=== PATIENT | female | born 1995 | race Two or more races ===

== ENCOUNTER → 2016-10-20 | Outpatient (CLI) | payer SELFPAY ==
--- NOTE | 2016-10-20 16:37 | RADIOLOGY REPORT (SQ) ---
EXAM DESCRIPTION: U/S OB 14+ TRNABD 1GES W/O DOP COMPLETED DATE/TIME: 10/20/2016 2:26 pm REASON FOR STUDY: ENCOUNTER FOR SUPERVISION OF OTHER NORMAL , SECOND TRIMESTER Z34.82 ENC OUNTER FOR SUPRVSN OF NORMAL , SECOND TRI COMPARISON: No previous imaging this TECHNIQUE: Static and Dynamic grayscale imaging performed of gravid uterus using transabdominal appr oach. Additional selected color Doppler and spectral images recorded. All stored on PACS. LIMITATIONS: None. FINDINGS: EGA: 15 weeks 3 days RACHEL: 04/10/2017 EFW: 119 g PERCENTILE: Not calculated KARISHMA: Adequate PLACENTA: Anterior. No abruption or previa PRESENTATION: Breech ANATOMY: HEART RATE: 139 beats per minute. FOUR CHAMBER HEART: Not well seen THREE VESSEL CORD: Yes. CORD INSERTION: Not well seen KIDNEYS AND BLADDER: Visualized. Appear normal. STOMACH: Visualized. Appears normal. SPINE: Normal as visualized. BRAIN AND LATERAL VENTRICLES: Unremarkable OTHER: No other significant finding. MATERNAL ADNEXA: Maternal ovaries not visualized. CERVICAL LENGTH: 5 cm in length Closed. OTHER: No other significant finding. IMPRESSION: LIVING INTRAUTERINE . ESTIMATED GESTATIONAL AGE 15 weeks 3 days NO VISUALIZED ANOMALIES. Trimester of : Second trimester - 13 weeks 1 day to 27 weeks 6 days. TECHNICAL DOCUMENTATION: JOB ID: [id number] [employer]- All Rights Reserved
== END ==
LOC: RAD 13:27
PROVIDERS: ATTEND Nurse Practitioner Women's Health
DX: Z34.82 Encounter for supervision of other normal pregnancy, second trimester (principal)
CPT/HCPCS: 76805

== ENCOUNTER → 2016-11-07 | Outpatient (CLI) | payer SELFPAY ==
--- NOTE | 2016-11-07 15:30 | RADIOLOGY REPORT (SQ) ---
EXAM DESCRIPTION: U/S OB 14+ TRNABD 1GES W/O DOP COMPLETED DATE/TIME: 11/07/2016 3:12 pm REASON FOR STUDY: ENCOUNTER FOR SUPERVISION OF OTHER NORMAL , SECOND TRIMESTER Z34.02 ENCN TR FOR SUPRVSN OF NORMAL FIRST PREG, SECOND TRIME COMPARISON: 10/20/2016 TECHNIQUE: Static and Dynamic grayscale imaging performed of gravid uterus using transabdominal appr oach. Additional selected color Doppler and spectral images recorded. All stored on PACS. LIMITATIONS: None. FINDINGS: EGA: 17 weeks 6 days RACHEL: 04/11/2017 EFW: 205 +/-30 grams PERCENTILE: Not applicable. Fetus less than or equal to 20 weeks gestation. KARISHMA: 4 cm PLACENTA: Anterior grade 1 PRESENTATION: Breech ANATOMY: HEART RATE: 137 beats per minute. FOUR CHAMBER HEART: Not seen THREE VESSEL CORD: Seen previously CORD INSERTION: Visualized. KIDNEYS AND BLADDER: Seen previously STOMACH: Seen previously SPINE: Seen previously BRAIN AND LATERAL VENTRICLES: Visualized. Appear normal. OTHER: No other significant finding. MATERNAL ADNEXA: Maternal ovaries not visualized. CERVICAL LENGTH: 3.2 cm Closed. OTHER: No other significant finding. IMPRESSION: Live intrauterine gestation of 17 weeks 6 days with estimated date of delivery of 018. No anomalies were seen. Study was slightly limited by position the fetus and movement. Trimester of : Second trimester - 13 weeks 1 day to 27 weeks 6 days. TECHNICAL DOCUMENTATION: JOB ID: [id number] [employer]- All Rights Reserved
== END ==
LOC: RAD 14:16
PROVIDERS: ATTEND Nurse Practitioner Women's Health
DX: Z34.02 Encounter for supervision of normal first pregnancy, second trimester (principal)
CPT/HCPCS: 76805

== ENCOUNTER 2017-01-12 18:51 | Emergency (ER) | payer MEDICAID ==
[2017-01-12 19:10] VITALS: BP 107/62
--- NOTE | 2017-01-12 19:31 | ER Document Report ---
ED GI/ - General Chief Complaint: Vomiting Stated Complaint: VOMITING, BODY PAIN Time Seen by Provider: 01/12/17 19:23 Notes: The patient is a 21-year-old female, 27 weeks , presents after 2 days of nausea, vomiting diarrhea and body aches. Her brother had similar symptoms last week. Patient's last vomiting episode was 10 hours ago and she is drinking and eating without any nausea. She denies abdominal pain, leakage of fluids, urinary symptoms, flank pain, fevers, hematemesis, blood in stool or recent travel. TRAVEL OUTSIDE OF THE [place] IN LAST 30 DAYS: No - Related Data Allergies/Adverse Reactions: No Known Allergies Allergy (Verified 01/12/17 19:07) Past Medical History - General Information source: Patient - Social History Smoking Status: Never Smoker Family History: Reviewed & Not Pertinent Review of Systems - Review of Systems Notes: REVIEW OF SYSTEMS: CONSTITUTIONAL: -fevers, -chills EENT: -eye pain, -difficulty swallowing, -nasal congestion CARDIOVASCULAR:-chest pain, -syncope. RESPIRATORY: -cough, -SOB GASTROINTESTINAL: -abdominal pain, +nausea, +vomiting, +diarrhea GENITOURINARY: -dysuria, -hematuria MUSCULOSKELETAL: -back pain, -neck pain SKIN: -rash or skin lesions. HEMATOLOGIC: -easy bruising or bleeding. LYMPHATIC: -swollen, enlarged glands. NEUROLOGICAL: -altered mental status or loss of consciousness, -headache, - neurologic symptoms PSYCHIATRIC: -anxiety, -depression. ALL OTHER SYSTEMS REVIEWED AND NEGATIVE. Physical Exam - Vital signs Vitals: Temp Pulse Resp BP Pulse Ox 99.4 F 96 16 107/62 98 01/12/17 19:07 01/12/17 19:07 01/12/17 19:07 01/12/17 19:07 01/12/17 19:07 - Notes Notes: PHYSICAL EXAMINATION: GENERAL: Well-appearing, well-nourished and in no acute distress. HEAD: Atraumatic, normocephalic. EYES: Pupils equal round and reactive to light, extraocular movements intact, sclera anicteric, conjunctiva are normal. ENT: nares patent, oropharynx clear without exudates. Moist mucous membranes. NECK: Normal range of motion, supple without lymphadenopathy LUNGS: Breath sounds clear to auscultation bilaterally and equal. No wheezes rales or rhonchi. HEART: Regular rate and rhythm without murmurs ABDOMEN: Soft, nontender, normoactive bowel sounds. No guarding, no rebound. No masses appreciated. EXTREMITIES: Normal range of motion, no pitting or edema. No cyanosis. NEUROLOGICAL: Cranial nerves grossly intact. Normal speech, normal gait. Normal sensory and motor exams. PSYCH: Normal mood, normal affect. SKIN: Warm, Dry, normal turgor, no rashes or lesions noted. Course - Re-evaluation Re-evalutation: Patient appears well and well hydrated. Urinalysis does not show any evidence of UTI or dehydration. She is declining antiemetics at this time. Abdominal exam is completely nontender. Patient drinking and eating without nausea or vomiting. UA shows 3 WBCs with large leukocyte esterase. Since she is , will add Abx for possible UTI coverage. Instructed to continue to stay hydrated and follow-up with her OB. - Vital Signs Vital signs: Temp Pulse Resp BP Pulse Ox 99.4 F 96 16 107/62 98 01/12/17 19:07 01/12/17 19:07 01/12/17 19:07 01/12/17 19:07 01/12/17 19:07 - Laboratory Laboratory results interpreted by me: 01/12/17 19:30 Urine Protein 30 H Urine Ketones 20 H Urine Urobilinogen 4.0 H Ur Leukocyte Esterase LARGE H Discharge - Discharge Clinical Impression: Nausea vomiting and diarrhea Condition: Stable Disposition: HOME, SELF-CARE Additional Instructions: VOMITING: Vomiting (or nausea without vomiting) can be caused by many other different problems. It can mean that something's wrong with the stomach, such as ulcers or inflammation or the intestinal tract, such as appendicitis. But it can also be a symptom of a problem that has nothing to do with the stomach or intestines. Vomiting is common with severe headaches, earaches, tonsillitis, and kidney infections, etc. We see it with pneumonia or heart attacks. Drugs can cause nausea and vomiting. Many abdominal problems cause vomiting; for example, gallstones, kidney stones, pancreatitis, and intestinal obstruction ( blocked bowels). In most cases, curing the vomiting depends on fixing the problem that caused it. For temporary relief, we may use an anti-nausea medicine. For home use, we can prescribe suppositories, chewable pills, pills that dissolve in the mouth, or liquid anti-nausea drugs. If the vomiting seems to be caused by a problem in the stomach, acid-suppressing drugs may be prescribed as well. It's important to avoid dehydration. Sip small amounts of clear liquids ( soft drinks, tea, broth, etc) . Try to take fluids frequently even if you are vomiting to prevent dehydration. Take increasing amounts of fluid and when liquids are being consumed successfully, advance to small amounts of bland food (toast, soups, mashed potatoes, etc.) until you are able to resume a regular diet. Avoid aspirin, tobacco, and alcohol. If the vomiting worsens, if the problem that's making you vomit worsens, or if there's evidence of bleeding in the stomach (such as black, tarry stool, or bloody or black vomit), you should return immediately. Also, return if abdominal pain worsens or becomes localized to one area or you develop high fever. Call your doctor if you aren't improved in 24 hours. DIARRHEA, NON-SPECIFIC: Diarrhea means frequent, watery stools. There are many causes. Any problem that keeps the intestinal tract from absorbing water from the stool can lead to diarrhea. A sudden new diarrhea problem is usually caused by a virus, food sensitivity, toxic bacteria, or drugs. In this case, we expect the problem to go away soon. Testing is done only if you seem seriously ill from the diarrhea. If you have chronic diarrhea, or diarrhea that keeps coming back, we need to find out why. Chronic diarrhea can be due to inflammation of the bowels such as Crohn's disease or ulcerative colitis, food sensitivity such as intolerance to lactose or wheat protein, irritable bowel syndrome, and other problems. If your diarrhea is a significant problem but it's not clear why you have it, we' ll refer you to a specialist for further testing. During an episode of diarrhea, drink small amounts (two to six ounces) of clear liquids (soft drinks, sport drinks, herb teas, broth, etc). Take fluids frequently to prevent dehydration. It's usually not a problem to take mild anti- diarrhea medication such as Kaopectate or Pepto-Bismol. As the diarrhea eases, advance to small amounts of bland food (mashed potato, toast) for 24 hours. Call the physician if blood appears in your vomit or stool, if vomiting lasts longer than 24 hours, if the abdominal pain worsens or becomes localized to one area, if you develop high fever, or if you become lightheaded and weak. VIRAL SYNDROME: The physician has diagnosed a viral infection. Viruses not only cause "colds," but can cause many different symptoms including generalized aching, fever, headache, cough, diarrhea, nausea, vomiting, and fatigue. The treatment, for the most part, is simply relief of symptoms. This means that antibiotics are usually not given. Rest, fluids, pain medications and, occasionally, medication for the specific symptoms that are most bothersome will be prescribed. Use good handwashing to avoid passing the virus to others. Shared toys should be cleaned with disinfectant. Clean the toilets, sinks, and counter surfaces in bathrooms. Launder clothing in hot water. Contact the physician if you develop any new or unusual symptoms such as severe headache, stiff neck, high fever, chest pain, productive cough, or shortness of breath. You should be rechecked if you don't see marked improvement within seven to 10 days. ANTINAUSEA MEDICATION: You have been given a medication to suppress nausea and vomiting. This type of medication can be given as a shot, pill, or suppository. It will usually last for many hours. Pills and shots usually last six to eight hours. For the typical illness, only one or two doses of the medication may be necessary. Mild lightheadedness may occur. This type of medicine can cause drowsiness. Do not drive or operate dangerous machinery while under its influence. Do not mix with alcohol. See your doctor at once if you have muscle spasms or tightness, or uncontrollable motions (particularly of the neck, mouth, or jaw). Persistent vomiting or severe lightheadedness should also be evaluated by the physician. REGLAN (METOCLOPRAMIDE): Reglan has been prescribed. This medicine affects the stomach and intestines. It can be used to treat nausea and vomiting, to prevent reflux of stomach acid up into the esophagus, or to increase the contractions of the stomach and intestines. It is often prescribed for esophagitis, and for paralysis of the stomach in diabetics. Reglan can cause either mild restlessness or drowsiness. You should contact the doctor at once if you become extremely restless, anxious, or cannot sleep, or if you develop uncontrollable motions of the lips, tongue, or jaw. Do not take alcohol with this medicine. Do not drive or operate machinery until you have been taking this medicine long enough to know how it affects you. Call the doctor if you develop abdominal pains, lightheadedness, black stool, or blood in the stool or vomitus. FOLLOW-UP CARE: If you have been referred to a physician for follow-up care, call the physician s office for an appointment as you were instructed or within the next two days. If you experience worsening or a significant change in your symptoms, notify the physician immediately or return to the Emergency Department at any time for re-evaluation. URINARY TRACT INFECTION: Your evaluation indicates that you have a urinary tract infection. This is due to germs growing in the bladder. This is a common problem. This infection usually responds quickly to antibiotics. Your antibiotic should be taken exactly as prescribed. Drink plenty of fluids -- three to four quarts a day. Occasionally, a bladder anesthetic will be prescribed to help stop the feeling of urgency until the antibiotic has a chance to clear the infection. This may cause your urine to be dark orange. Certain urine infections require a culture. If the doctor obtained a culture, the results will be back in two days. You should call to see if a change in treatment is needed. A repeat urinalysis after you finish treatment is often recommended. The physician will let you know if further testing is required. Call the doctor if you develop fever, chills, flank pain, inability to urinate, or blood in the urine. ANTIBIOTIC THERAPY: You have been given an antibiotic prescription. It's important that you take all the medication, unless instructed otherwise by your physician. Failure to complete the entire course can result in relapse of your condition. Common side effects of antibiotics include nausea, intestinal cramping, or diarrhea. Women may develop vaginal yeast infections, and babies can get yeast (thrush) in the mouth following the use of antibiotics. Contact your physician if you develop significant side effects from this medication. Allergy to this antibiotic can result in hives, wheezing, faintness, or itching. If symptoms of allergy occur, stop the medication and call the doctor. CEPHALEXIN: The antibiotic you've been prescribed is a member of the cephalosporin class. This type of antibiotic covers a wide variety of infections, including those of the skin, lungs, and urinary tract. It's useful for staph infections. This antibiotic is slightly similar to the penicillin family. In rare cases , a person who is allergic to penicillin will also be allergic to this medication. If you have had a severe allergic reaction to penicillin, and have not taken this antibiotic since that time, notify your doctor. Antibiotics which cover many germs ("broad spectrum" antibiotics) are more likely to cause diarrhea or "yeast" infections. Women prone to vaginal yeast problems may suffer an attack after taking this antibiotic. In infants, oral thrush (white spots "stuck" on the cheek) or yeast diaper rash may result. See your doctor if these problems occur. Call at once if you develop itching, hives , shortness of breath, or lightheadedness. FOLLOW-UP CARE: If you have been referred to a physician for follow-up care, call the physician s office for an appointment as you were instructed or within the next two days. If you experience worsening or a significant change in your symptoms, notify the physician immediately or return to the Emergency Department at any time for re-evaluation. Prescriptions: Cephalexin Monohydrate [Keflex 500 mg Capsule] 500 mg PO BID 7 Days capsule Metoclopramide HCl [Reglan 10 mg Tablet] 1 - 2 tab PO ASDIR PRN #10 tablet PRN Reason: Referrals: [facility] [Provider Group] - Follow up as needed
[2017-01-12 19:57] LABS: APPEARANCE,URINE SLIGHTLY-CLOUDY; BILIRUBIN,URINE NEGATIVE (NEGATIVE); GLUCOSE, URINE NEGATIVE (NEGATIVE); KETONES,URINE 20 mg/dL (NEGATIVE); LEUKOCYTE ESTERASE,URINE LARGE (NEGATIVE); NITRITE,URINE NEGATIVE (NEGATIVE); PROTEIN,URINE 30 mg/dL (NEGATIVE); URINE SPECIFIC GRAVITY 1.029
== END 2017-01-12 20:07 | disposition home or self-care (01) ==
LOC: ER 18:51
DX: O21.2 Late vomiting of pregnancy (principal); R19.7 Diarrhea, unspecified; M79.1 Myalgia; Z3A.27 27 weeks gestation of pregnancy
CPT/HCPCS: 81001; 99284

== ENCOUNTER 2017-04-06 20:49 | Inpatient (IN) | payer MEDICAID ==
[2017-04-06 22:00] LABS: APPEARANCE,URINE SLIGHTLY-CLOUDY; BILIRUBIN,URINE NEGATIVE (NEGATIVE); COLOR,URINE YELLOW; GLUCOSE, URINE NEGATIVE (NEGATIVE); KETONES,URINE NEGATIVE (NEGATIVE); LEUKOCYTE ESTERASE,URINE NEGATIVE (NEGATIVE); NITRITE,URINE NEGATIVE (NEGATIVE); PROTEIN,URINE NEGATIVE (NEGATIVE); URINE SPECIFIC GRAVITY 1.015; UROBILINOGEN,URINE NEGATIVE mg/dL (<2.0)
[2017-04-06 22:19] LABS: URINE AMPHETAMINES SCREEN NEGATIVE; URINE BARBITURATES SCREEN NEGATIVE; URINE BENZODIAZEPINES SCREEN NEGATIVE; URINE COCAINE SCREEN NEGATIVE; URINE MARIJUANA (THC) SCREEN NEGATIVE; URINE METHADONE SCREEN NEGATIVE; URINE PHENCYCLIDINE SCREEN NEGATIVE
[2017-04-07] MEDS ORDERED: PENICILLIN G POTASSIUM 5,000,000 UNIT in DEXTROSE 5%-WATER 100 ML IV ONE (00:05)
[2017-04-07] MEDS ORDERED: RINGERS SOLUTION,LACTATED 1,000 ML IV ONE (00:05)
[2017-04-07] MEDS ORDERED: RINGERS SOLUTION,LACTATED 1,000 ML IV PRN (00:05)
[2017-04-07] MEDS ORDERED: MISOPROSTOL 0.2 MG TABLET ONE (00:07)
[2017-04-07] MEDS ORDERED: OXYTOCIN/NORMAL SALINE 20 UNIT/1,000 ML RTUINJ ONE (00:07)
[2017-04-07] MEDS ORDERED: LIDOCAINE 1% INJ-PF (10 MG/ML) 30 ML SDV ONE (00:07)
[2017-04-07] MEDS ORDERED: PENICILLIN G-K 5 MILLION UNIT VIAL ONE ×3 (00:08→08:48)
[2017-04-07] MEDS ORDERED: PENICILLIN G-K 5 MILLION UNIT VIAL IV PRN (00:29)
[2017-04-07 00:30] LABS: ABSOLUTE EOSINOPHILS # (AUTO) 0.2 10^3/uL (0.0-0.6); ABSOLUTE LYMPHOCYTES (AUTO) 2.1 10^3/uL (0.5-4.7); ABSOLUTE MONOCYTES (AUTO) 0.7 10^3/uL (0.1-1.4); ABSOLUTE NEUT (AUTO) 8.2 10^3/uL (1.7-8.2); BASOPHILS % (AUTO) 0.3 % (0-2); EOSINOPHILS % (AUTO) 1.4 % (0-6); HEMATOCRIT 31.7 % (36.0-47.0); HEMOGLOBIN 10.8 g/dL (12.0-15.5); LYMPHOCYTES % (AUTO) 18.6 % (13-45); MEAN CORPUSCULAR HEMOGLOBIN 28.1 pg (27.0-33.4); MEAN CORPUSCULAR VOLUME 83 fl (80-97); MONOCYTES % (AUTO) 6.5 % (3-13); PLATELET COUNT 293 10^3/uL (150-450); RED BLOOD COUNT 3.84 10^6/uL (3.72-5.28); RED CELL DISTRIBUTION WIDTH 14.6 % (11.5-14.0); SEGMENTED NEUTROPHILS % (AUTO) 73.2 % (42-78); TOTAL CELLS COUNTED % (AUTO) 100 %; WHITE BLOOD COUNT 11.1 10^3/uL (4.0-10.5)
[2017-04-07] MEDS ORDERED: MISOPROSTOL 0.1 MG TABLET ONE (00:51)
[2017-04-07] MEDS ORDERED: PENICILLIN G POTASSIUM 2,500,000 UNIT in DEXTROSE 5%-WATER 50 ML IV SCH (04:06)
[2017-04-07] MEDS ORDERED: EPHEDRINE SULFATE INJ 50 MG/1 ML AMPULE ONE (08:13)
[2017-04-07] MEDS ORDERED: BUPIVACAINE HCL 0.25 % INJ/PF (2.5 MG/1 ML) 30 ML VIAL ONE (08:13)
[2017-04-07] MEDS ORDERED: FENTANYL/BUPIVACAINE/NS/PF 200 MCG/100 ML RTUINJ EPI ONE (08:13)
[2017-04-07] MEDS ORDERED: FENTANYL CITRATE INJ/PF 100 MCG/2 ML AMPUL ONE (08:16)
--- NOTE | 2017-04-07 08:18 | L&D Progress Notes ---
PROGRESS NOTES Datetime Report Generated by CPN: 04/07/2017 08:18 PROGRESS NOTE Impression: Normal Progression of Labor; Reassuring Heart Rate Procedures: Sterile Vag Exam Plan: Continue Present Management Plan Other: may get epidural Vital Signs : Reviewed Comment: Pt feeling strong ctx, desires epidural may have epidural VAGINAL EXAM Dilatation: 1 Effacement: 25 Station: -3 Contractions: irregular MEMBRANES Membranes: Ruptured Membranes: Ruptured Amniotic Fluid Color: Clear FETUS A FHR - Baseline: 125 Monitoring: External US Variability: Moderate 6-25bpm Accelerations: 15X15 Decelerations: None; Variable FHR Category: Category I Presentation: Vertex SIGNATURE SIGNATURE: [id number] Assignment: Lisa Elizabeth MD Signature: with User ID: [email or web address] : with User ID: [email or web address]
[2017-04-07] MEDS ORDERED: ZOLPIDEM TARTRATE 5 MG TABLET PO PRN (10:16)
[2017-04-07] MEDS ORDERED: DIBUCAINE 1% OINTMENT 28 GM TP PRN (10:16)
[2017-04-07] MEDS ORDERED: MEASLES,MUMPS&RUBELLA VACC/PF 0.5 ML VIAL SUBCUT PRN (10:16)
[2017-04-07] MEDS ORDERED: DIPH/PERTUSS(ACELL)/TETANUS VAC/PF 0.5 ML SYR (>=10YO) IM PRN (10:16)
[2017-04-07] MEDS ORDERED: BENZOCAINE/MENTHOL AEROSOL SPRAY 56 ML TOP PRN (10:16)
[2017-04-07] MEDS ORDERED: ACETAMINOPHEN WITH CODEINE #3 TABLET PO PRN ×2 (10:16)
[2017-04-07] MEDS: PENICILLIN G-K 5 MILLION UNIT VIAL IV SCH ×3 (11:14→13:51)
[2017-04-07] MEDS: OXYTOCIN/NORMAL SALINE 20 UNIT/1,000 ML RTUINJ IV PRN ×3 (11:23→13:51)
[2017-04-07] MEDS ORDERED: IBUPROFEN 800 MG TABLET ONE (13:38)
[2017-04-07] MEDS: IBUPROFEN 800 MG TABLET PO SCH ×2 (13:45→22:02)
--- NOTE | 2017-04-07 15:02 | Admission Physical ---
Datetime Report Generated by CPN: 04/07/2017 15:02 CURRENT ADMISSION Hx Assessment: The History has been Reviewed and is Current Chief Complaint: Suspected Ruptured Membranes Indication for Induction: Not Applicable Indication for Induction: Term, Intrauterine ; No Active Labor; Ruptured Membranes Admit Plan: Admit to Unit; Initiate Labor Protocol ALLERGIES Medication Allergies: No Medication Allergies: No Known Allergies (04/06/2017) Medication Allergies: No Known Allergies (01/12/2017) Latex: No Latex Allergies Food Allergies: nka Environmental Allergies: nka OBSTETRICAL HISTORY EDC: 04/10/2017 00:00 : 1 Para: 0 Term: 0 : 0 SAB: 0 IAB: 0 Ectopic: 0 Livin Cesareans: 0 VBACs: 0 Multiple Births: 0 Gestational Diabetes: No Rh Sensitization: No Incompetent Cervix: No JESSICA: No Infertility: No ART Treatment: No Uterine Anomaly: No IUGR: No Hx Previous C/S: No Macrosomia: No Hx Loss/Stillborn: No PIH: No Hx : No Placenta Previa/Abruption: No Depression/PP Depression: No PTL/PROM: No Post Hemorrhage: No Current Procedures: Ultrasound; NST Obstetrical History Comments: G1- current- late care SEE RECORDS Alcohol: No Marijuana : No Cocaine: No Other Illicit Drugs: No Cigarettes: Never Smoker. [id number] MEDICAL HISTORY Diabetes: No Blood Transfusion: No Pulmonary Disease (Asthma, TB): No Breast Disease: No Hypertension: No Community Liaison Surgery: No Heart Disease: No Hosp/Surgery: No Autoimmune Disorder: No Anesthetic Complications: No Kidney Disease: No Abnormal Pap Smear: No Neuro/Epilepsy: No Psychiatric Disorders: No Other Medical Diseases: No Hepatitis/Liver Disease: No Significant Family History: No Varicosities/Phlebitis: No Trauma/Violence : No Thyroid Dysfunction: No INFECTIOUS HISTORY Gonorrhea: No Genital Herpes: No Chlamydia: No Tuberculosis: No Syphilis: No Hepatitis: No HIV/AIDS Exposure: No Rash or Viral Illness: No HPV: No Infectious History Comments: yeast infection- 2016 PHYSICAL EXAM General: Normal HEENT: Normal Neurologic: Normal Thyroid: Deferred Heart: Normal Lungs: Normal Breast: Normal Back: Normal Abdomen: Normal Genitourinary Exam: Normal Extremities: Normal DTRs: Normal Pelvic Type: Adequate Vital Signs: Reviewed VAGINAL EXAM Dilatation: 1 Effacement: 25 Station: -3 Contraction Comments: irregular MEMBRANES Membranes: Ruptured Membranes: Ruptured Amniotic Fluid Color: Clear FETUS A EGA: 39.3 Monitoring: External US FHR- Baseline: 125 Variability: Moderate 6-25bpm Accelerations: 15X15 Decelerations: None FHR Category: Category I Presentation: Vertex Admit Comment: SROM at 1145 pm, states active bayb, denies bleeding, irregular ctx Admit to L _ D GBS +, pcn plan for cytotec 50 mcg po and 25 pv then reassess late care, otherwise uncomplicated nkda see record for complete hx PLANS FOR LABOR AND DELIVERY Labor and Delivery: None Pain Management: Medications Feeding Preference: Both Benefit of Breast Feed Discussed: Yes Circumcision: No INFORMED CONSENT Assignment: Kalpana Hayden MD Signature: with User ID: [email or web address] : with User ID: [email or web address]
[2017-04-07] MEDS: DOCUSATE SODIUM 100 MG CAPSULE PO SCH (18:22)
[2017-04-07] MEDS: FERROUS SULFATE 325 MG TABLET PO SCH (18:22)
[2017-04-08] MEDS: IBUPROFEN 800 MG TABLET PO SCH ×3 (05:17→21:22)
[2017-04-08 08:32] LABS: HEMATOCRIT 26.8 % (36.0-47.0); MEAN CORPUSCULAR HEMOGLOBIN 28.1 pg (27.0-33.4); MEAN CORPUSCULAR HGB CONC 33.4 g/dL (32.0-36.0); MEAN CORPUSCULAR VOLUME 84 fl (80-97); PLATELET COUNT 248 10^3/uL (150-450); RED BLOOD COUNT 3.18 10^6/uL (3.72-5.28); RED CELL DISTRIBUTION WIDTH 14.7 % (11.5-14.0); WHITE BLOOD COUNT 13.2 10^3/uL (4.0-10.5)
[2017-04-08] MEDS: PRENATAL VITAMIN W DHA CAPSULE PO SCH (09:46)
[2017-04-08] MEDS: DOCUSATE SODIUM 100 MG CAPSULE PO SCH ×2 (09:46→17:21)
[2017-04-08] MEDS: SENNOSIDES/DOCUSATE 8.6-50 MG 1 EACH TABLET PO SCH (09:46)
[2017-04-08] MEDS: FERROUS SULFATE 325 MG TABLET PO SCH ×2 (09:47→17:21)
--- NOTE | 2017-04-08 10:01 | PDOC PROGRESS REPORT ---
Subjective-OB Progress Note for:: 04/08/17 Subjective: Post day #1 Pt states lochia is stable, pain well controlled, voiding without difficulty. Bonding with baby well. Physical Exam (OB) Vital Signs: Temp Pulse Resp BP Pulse Ox 97.9 F 69 15 104/60 100 04/08/17 07:50 04/08/17 07:50 04/08/17 07:50 04/08/17 07:50 04/08/17 07:50 Intake & Output 04/07/17 04/08/17 04/09/17 06:59 06:59 06:59 Intake Total 300 Balance 300 - Lochia Lochia Amount: Scant < 10 ml Lochia Color: Rubra/Red - Abdomen Description: Tender, Soft Hernia Present: No Fundal Description: Firm, Midline Fundal Height: u/u - u/2 Objective-Diagnostic Laboratory: 04/08/17 07:37 04/08/17 07:37 WBC 13.2 H RBC 3.18 L Hgb 9.0 L Hct 26.8 L MCV 84 MCH 28.1 MCHC 33.4 RDW 14.7 H Plt Count 248 Assessment and Plan(PN) - Assessment and Plan (1) Vaginal delivery Is this a current diagnosis for this admission?: Yes Plan: routine pp care (2) Acute blood loss anemia Is this a current diagnosis for this admission?: Yes Plan: ferrous sulfate increase dietary iron - Time Spent with Patient Time with patient: Less than 15 minutes Critical Time spent with patient: Less than 15 minutes Medications reviewed and adjusted accordingly: Yes
[2017-04-09] MEDS: IBUPROFEN 800 MG TABLET PO SCH (05:32)
--- NOTE | 2017-04-09 06:57 | Delivery Summary ---
Del Sum A-C Datetime Report Generated by CPN: 04/09/2017 06:57 DELIVERY PERSONNEL DELIVERY PERSONNEL: [id number] Delivery Doctor:: Mariela Carlos CNM Labor and Delivery Nurse:: Abimbola Harkins RNC Labor and Delivery Nurse:: Tawnya Rodriguez RN Data Warehousing Manager/GATE MANAGER: Adilene Elmore, ST Additional Personnel: : BLESSING Stock MATERNAL INFORMATION Delivery Anesthesia: Epidural Medications After Delivery: Pitocin Bolus-Please Comment; Pitocin Drip 20 Units/1000ml NSS Estimated Blood Loss (ml): 200 Maternal Complications: None Provider Comments: of viable male infant over intact perineum, head shoulders and body delivered without difficulty, infant with spontaneous cry and respirations to maternal abdomen, cord, clamped X2, cut free by pt, kept skin to skin, spontaneous delivery of placenta via lópez mechanism, appears intact, 3 VC, vagina and perineum inspected, superficial abrasions noted, not bleeding not repaired. hemostasis acheived with external fundal massage and IV pitocin, mother and infant in stable condition, routine pp care. LABOR SUMMARY EDC: 04/10/2017 00:00 No. Babies in Womb: 0 Attempted: No Labor Anesthesia: Epidural LABOR INFORMATION Reason for Induction: Not Applicable Onset of Labor: 04/07/2017 08:18 Complete Dilatation: 04/07/2017 08:40 Oxytocin: N/A Group B Beta Strep: Positive Antibiotics # of Doses: 2 Antibiotics Time of Last Dose: PCN Name of Antibiotic Given: 0849 Steroids Given: None Reason Steroids Not Administered: Not Applicable MEMBRANES Membranes Rupture Method: Spontaneous Rupture of Membranes: 04/06/2017 13:45 Length of Rupture (hr): 19.48 Amniotic Fluid Color: Clear Amniotic Fluid Amount: Moderate Amniotic Fluid Odor: Normal STAGES OF LABOR Stage 1 hr: 0 Stage 1 min: 22 Stage 2 hr: 0 Stage 2 min: 34 Stage 3 hr: 0 Stage 3 min: 3 Total Time in Labor hr: 0 Total Time in Labor min: 59 VAGINAL DELIVERY Episiotomy: None Laceration #1: None Laceration Extension #1: N/A Laceration #2: None Laceration #3: None Laceration Repair: Not Applicable Sponge Count Correct: N/A Sharps Count Correct: N/A CSECTION DELIVERY Primary Indication: N/A Secondary Indication: N/A CSection Incidence: N/A Labor: N/A Elective: N/A CSection Incision: N/A BABY A INFORMATION Infant Delivery Date/Time: 04/07/2017 09:14 Method of Delivery: Vaginal Born in Route : No : N/A Forceps: N/A Vacuum Extraction: N/A Shoulder Dystocia : No PRESENTATION/POSITION BABY A Presentation: Cephalic Cephalic Presentation: Vertex Vertex Position: Right Occipital Anterior Breech Presentation: N/A PLACENTA INFORMATION BABY A Placenta Delivery Time : 04/07/2017 09:17 Placenta Method of Delivery: Spontaneous Placenta Status: Delivered SCORES BABY A Heart Rate 1 min: >100 bpm Resp Effort 1 min: Good Cry Reflex Irritability 1 min: Cough or Sneeze or Pulls Away Muscle Tone 1 min: Active Motion Color 1 min: Body [place], Extremities Blue Resuscitation Effort 1 min: Tactile Stimulation SCORE 1 MIN: 9 Heart Rate 5 min: >100 bpm Resp Effort 5 min: Good Cry Reflex Irritability 5 min: Cough or Sneeze or Pulls Away Muscle Tone 5 min: Active Motion Color 5 min: Completely [place] Resuscitation Effort 5 min: N/A SCORE 5 MIN: 10 Resuscitation Effort 10 min: N/A INFANT INFORMATION BABY A Gestational Age at Delivery: 39.4 Gestational Status: Full Term- 39- 40.6 Weeks Infant Outcome : Liveborn Condition : Stable Sex: Male IDENTIFICATION BABY A Verification Date/Time: 04/07/2017 09:21 ID Band Number: [id number] Mother's Name Verified: Yes Infant RN Verifying : Ha Harkins, RN/ CAna María Omalley, RN WEIGHT/LENGTH BABY A Infant Birthweight (gm): 2940 Infant Weight (lb): 6 Infant Weight (oz): 8 Length (in): 20.25 Length (cm): 51.44 CORD INFORMATION BABY A No. Cord Vessels: 3 Nuchal Cord : Around Neck x1, Loose Cord Blood Taken: Yes-For Eval (Mom's Blood Type - or O+) Infant Suction: None ASSESSMENT BABY A Complications: Multiple Variable Decels; Meconium Infant Complications- Other: terminal meconium Physical Findings at Delivery: Caput Succedaneum; Molding of the Head Respirations: Appears Normal Skin to Skin: Yes Skin to Skin: Yes Skin to Skin Time (min): 60 Rental Sales Associate/ALS Called : No Care By: Bandar Harkins [facility] Transferred To: Remains with Mother BABY B INFORMATION : N/A SIGNATURES Assignment: Lisa Elizabeth MD Signature: with User ID: [email or web address] : with User ID: [email or web address]
--- NOTE | 2017-04-09 07:07 | Warning Signs in Babies ---
VOD Warning Signs Datetime Report Generated by [facility]: 04/09/2017 07:07 VOD#608 -Warning Signs in Babies: Viewed with Parent(s)/Family (04/07/2017 09:29:Tawnya Rodriguez RN)
--- NOTE | 2017-04-09 07:09 | Warning Signs in Babies ---
VOD Warning Signs Datetime Report Generated by [facility]: 04/09/2017 07:09 VOD#608 -Warning Signs in Babies: Viewed with Parent(s)/Family (04/07/2017 09:29:Tawnya Rodriguez RN)
--- NOTE | 2017-04-09 08:45 | PDOC DISCHARGE SUMMARY ---
Final Diagnosis Discharge Date: 04/09/17 - Final Diagnosis (1) Vaginal delivery Is this a current diagnosis for this admission?: Yes (2) Acute blood loss anemia Is this a current diagnosis for this admission?: Yes Discharge Data - Discharge Medication Prescriptions: Docusate Sodium [Colace 100 mg Capsule] 100 mg PO BID #60 capsule Ferrous Sulfate [Feosol 325 mg Tablet] 325 mg PO BID #60 tablet Ibuprofen [Motrin 800 mg Tablet] 800 mg PO Q8 #60 tablet Home Medications: Vit/Iron Fum/Folic AC [ Tablet] 1 each PO DAILY 04/07/17 Docusate Sodium [Colace 100 mg Capsule] 100 mg PO BID #60 capsule 04/09/17 Ferrous Sulfate [Feosol 325 mg Tablet] 325 mg PO BID #60 tablet 04/09/17 Ibuprofen [Motrin 800 mg Tablet] 800 mg PO Q8 #60 tablet 04/09/17 Gestational Age: 39.4 Reason(s) for Admission: Onset of Labor, Group B Strep Positive Procedures: NST Intrapartum Procedure(s): Spontaneous Vaginal Delivery - Data Baby 1 Male at 1 minute: 9 at 5 minutes: 10 Weight: 2940 kg Home with Mother: Yes Complications: No - Diagnosis Test Laboratory: Temp Pulse Resp BP Pulse Ox 98.6 F 84 18 116/71 100 04/08/17 19:55 04/08/17 19:55 04/08/17 19:55 04/08/17 19:55 04/08/17 19:55 04/06/17 04/07/17 04/08/17 21:16 00:19 07:37 RBC 3.84 3.18 L Hgb 10.8 L 9.0 L Hct 31.7 L 26.8 L Urine Opiates Screen NEGATIVE - Discharge information/Instructions Discharge Activity: Activity As Tolerated, Pelvic Rest, No tub bath Discharge Diet: Regular Disposition: HOME, SELF-CARE Follow up with: [facility] in: 4, Weeks
[2017-04-09] MEDS: PRENATAL VITAMIN W DHA CAPSULE PO SCH (09:41)
[2017-04-09] MEDS: DOCUSATE SODIUM 100 MG CAPSULE PO SCH (09:43)
[2017-04-09] MEDS: SENNOSIDES/DOCUSATE 8.6-50 MG 1 EACH TABLET PO SCH (09:44)
[2017-04-09] MEDS: FERROUS SULFATE 325 MG TABLET PO SCH (09:44)
[2017-04-09 11:06] VITALS: BP 114/56
== END 2017-04-09 13:16 | disposition home or self-care (01) | DRG 775 ==
LOC: LC 20:49 → LR 04-07 00:02 → 2S 04-07 14:00
PROVIDERS: ADMIT Obstetrics & Gynecology; ATTEND Obstetrics & Gynecology
PROC: 10E0XZZ Delivery of Products of Conception, External Approach (ICD-10-PCS; principal; 2017-04-07)
PROC: 3E0P7VZ Introduction of Hormone into Female Reproductive, Via Natural or Artificial Opening (ICD-10-PCS; 2017-04-07)
PROC: 4A1HXCZ Monitoring of Products of Conception, Cardiac Rate, External Approach (ICD-10-PCS; 2017-04-07)
DX: O99.824 Streptococcus B carrier state complicating childbirth (principal); Z37.0 Single live birth; D62 Acute posthemorrhagic anemia; O99.02 Anemia complicating childbirth; Z3A.39 39 weeks gestation of pregnancy
CPT/HCPCS: 36415; 80307; 81005; 85025; 85027; 86592; 86850; 86900; 86901; J2540; J2590; J3010; J3490; Q0114

== ENCOUNTER → 2019-02-19 | Outpatient (CLI) | payer MEDICAID ==
--- NOTE | 2019-02-19 14:50 | RADIOLOGY REPORT (SQ) ---
EXAM DESCRIPTION: U/S [id number] TRNABD 1GES W/ODOP COMPLETED DATE/TIME: 02/19/2019 2:38 pm REASON FOR STUDY: ENCOUNTER FOR SUPERVISION OF OTHER NORMAL PREGANCY Z34.81 ENCOUNTER FOR SUPRVSN O F NORMAL , FIRST TRIM COMPARISON: None. TECHNIQUE: Transabdominal static and realtime grayscale images acquired of the pelvis. Additional se lected spectral and color Doppler images recorded. All images stored on PACs. bHCG: Not applicable. CLINICAL DATES: 11 weeks 1 day LIMITATIONS: None. FINDINGS: FETUS: Single Living intrauterine . ULTRASOUND EGA: 13 weeks 1 day. ULTRASOUND RACHEL: 08/26/2019 EFW: Not applicable less than 20 weeks. CRL: 6.9 cm. FHR: 143 beats per minute. SURVEY: Too early to assess. AMNIOTIC FLUID: Adequate amount. PLACENTA: Not yet developed due to early gestation. SUBCHORIONIC BLEED: No. SIZE OF BLEED: Not applicable. UTERUS: No masses. No anomalies. CERVICAL LENGTH: 3.5 cm. Closed. RIGHT ADNEXA: Normal ovary with normal vascular flow. No adnexal free fluid. No adnexal masses. LEFT ADNEXA: Normal ovary with normal vascular flow. No adnexal free fluid. No adnexal masses. FREE FLUID: None. OTHER: No other significant finding. IMPRESSION: LIVING INTRAUTERINE . EGA 13 WEEKS 1 DAY. Trimester of : Second trimester - 13 weeks 1 day to 27 weeks 6 days. TECHNICAL DOCUMENTATION: JOB ID: [id number] [employer]- All Rights Reserved Reading location - IP/workstation name: [email or web address]
== END ==
LOC: RAD 14:14
PROVIDERS: ATTEND Midwife
DX: Z34.81 Encounter for supervision of other normal pregnancy, first trimester (principal); Z3A.13 13 weeks gestation of pregnancy
CPT/HCPCS: 76801

== ENCOUNTER 2019-08-26 15:37 | Inpatient (IN) | payer MEDICAID ==
[2019-08-26 16:13] LABS: BACTERIA (WET MOUNT) 3+ BACTERIA SEEN; EPITHELIALS (WET MOUNT) 3+ EPITHELIALS SEEN; RBCS (WET MOUNT) 1+ RBCS SEEN; T.VAGINALIS (WET MOUNT) NO TRICHOMONAS SEEN; WBCS (WET MOUNT) 2+ WBCS SEEN; YEAST (WET MOUNT) NO YEAST SEEN
[2019-08-26 16:30] LABS: URINE AMPHETAMINES SCREEN NEGATIVE; URINE BARBITURATES SCREEN NEGATIVE; URINE BENZODIAZEPINES SCREEN NEGATIVE; URINE COCAINE SCREEN NEGATIVE; URINE MARIJUANA (THC) SCREEN NEGATIVE; URINE METHADONE SCREEN NEGATIVE; URINE PHENCYCLIDINE SCREEN NEGATIVE
[2019-08-26 16:37] LABS: APPEARANCE,URINE SLIGHTLY-CLOUDY; BILIRUBIN,URINE NEGATIVE (NEGATIVE); COLOR,URINE YELLOW; GLUCOSE, URINE NEGATIVE (NEGATIVE); KETONES,URINE NEGATIVE (NEGATIVE); LEUKOCYTE ESTERASE,URINE NEGATIVE (NEGATIVE); NITRITE,URINE NEGATIVE (NEGATIVE); PROTEIN,URINE NEGATIVE (NEGATIVE); URINE SPECIFIC GRAVITY 1.016
[2019-08-26] MEDS ORDERED: RINGERS SOLUTION,LACTATED 1,000 ML IV ONE (16:37)
[2019-08-26] MEDS ORDERED: PENICILLIN G POTASSIUM 5,000,000 UNIT in DEXTROSE 5%-WATER 100 ML IV ONE (16:41)
--- NOTE | 2019-08-26 16:45 | Admission Physical ---
Datetime Report Generated by CPN: 08/26/2019 16:45 CURRENT ADMISSION Chief Complaint: Suspected Ruptured Membranes Indication for Induction: PROM Admit Impression : Ruptured Membranes Admit Plan: Admit to Unit; Initiate Labor Induction Protocol Admit Plan- Other: leaking for 3 days, intermittently unknown rupture time ALLERGIES Medication Allergies: No Medication Allergies: No Known Allergies (08/26/2019) Latex: No Latex Allergies Food Allergies: none Environmental Allergies: none OBSTETRICAL HISTORY EDC: 08/26/2019 00:00 (Annotations: Data stored by CPN on behalf of user) : 3 Para: 1 Term: 1 : 0 SAB: 1 IAB: 0 Ectopic: 0 Livin Cesareans: 0 VBACs: 0 Multiple Births: 0 Gestational Diabetes: No Rh Sensitization: No Incompetent Cervix: No JESSICA: No Infertility: No ART Treatment: No Uterine Anomaly: No IUGR: No Hx Previous C/S: No Macrosomia: No Hx Loss/Stillborn: No PIH: No Hx : No Placenta Previa/Abruption: No Depression/PP Depression: No PTL/PROM: No Post Hemorrhage: No Current Procedures: Ultrasound; NST MEDICAL HISTORY Diabetes: No Blood Transfusion: No Pulmonary Disease (Asthma, TB): No Breast Disease: No Hypertension: No Clock And Watch Hands Mounter Surgery: No Heart Disease: No Hosp/Surgery: No Autoimmune Disorder: No Anesthetic Complications: No Kidney Disease: No Abnormal Pap Smear: No Neuro/Epilepsy: No Psychiatric Disorders: No Other Medical Diseases: No Hepatitis/Liver Disease: No Significant Family History: No Varicosities/Phlebitis: No Trauma/Violence : No Thyroid Dysfunction: No INFECTIOUS HISTORY Gonorrhea: No Genital Herpes: No Chlamydia: No Tuberculosis: No Syphilis: No Hepatitis: No HIV/AIDS Exposure: No Rash or Viral Illness: No HPV: No PHYSICAL EXAM General: Normal HEENT: Deferred Neurologic: Normal Thyroid: Deferred Heart: Normal Lungs: Normal Breast: Deferred Back: Deferred Abdomen: Normal Genitourinary Exam: Deferred Extremities: Normal DTRs: Deferred Pelvic Type: Adequate Vital Signs: Reviewed VAGINAL EXAM Dilatation: 3 Effacement: 60 Station: -1 MEMBRANES Membranes: Ruptured FETUS A EGA: 40.0 Monitoring: External US FHR- Baseline: 135 Variability: Moderate 6-25bpm Accelerations: 15X15 Decelerations: None FHR Category: Category I Presentation: Vertex Admit Comment: GBS neg will treat with ABX d/t prolonged ROM, c/w Dr. Hayden INFORMED CONSENT Assignment: Kalpana Hayden MD Signature: with User ID: [email or web address] : with User ID: [email or web address]
[2019-08-26] MEDS ORDERED: MISOPROSTOL 0.2 MG TABLET ONE (16:58)
[2019-08-26] MEDS ORDERED: OXYTOCIN 10 UNIT/ML VIAL ONE (16:58)
[2019-08-26] MEDS ORDERED: OXYTOCIN/0.9 % SODIUM CHLORIDE 30 UNIT/500 ML RTUINJ ONE (16:58)
[2019-08-26] MEDS ORDERED: LIDOCAINE 1% INJ-PF (10 MG/ML) 30 ML SDV ONE (16:58)
[2019-08-26] MEDS ORDERED: PENICILLIN G-K 5 MILLION UNIT VIAL ONE ×2 (16:58→21:01)
[2019-08-26] MEDS: RINGERS SOLUTION,LACTATED 1,000 ML IV PRN (17:00)
[2019-08-26 17:18] LABS: ABSOLUTE BASOPHILS # (AUTO) 0.1 10^3/uL (0.0-0.2); ABSOLUTE EOSINOPHILS # (AUTO) 0.2 10^3/uL (0.0-0.6); ABSOLUTE LYMPHOCYTES (AUTO) 1.7 10^3/uL (0.5-4.7); ABSOLUTE MONOCYTES (AUTO) 0.4 10^3/uL (0.1-1.4); ABSOLUTE NEUT (AUTO) 5.3 10^3/uL (1.7-8.2); BASOPHILS % (AUTO) 0.8 % (0-2); EOSINOPHILS % (AUTO) 2.5 % (0-6); HEMATOCRIT 33.8 % (36.0-47.0); HEMOGLOBIN 11.4 g/dL (12.0-15.5); LYMPHOCYTES % (AUTO) 21.9 % (13-45); MEAN CORPUSCULAR HEMOGLOBIN 28.6 pg (27.0-33.4); MEAN CORPUSCULAR HGB CONC 33.7 g/dL (32.0-36.0); MEAN CORPUSCULAR VOLUME 85 fl (80-97); MONOCYTES % (AUTO) 5.1 % (3-13); PLATELET COUNT 293 10^3/uL (150-450); RED BLOOD COUNT 3.98 10^6/uL (3.72-5.28); RED CELL DISTRIBUTION WIDTH 15.5 % (11.5-14.0); SEGMENTED NEUTROPHILS % (AUTO) 69.7 % (42-78); TOTAL CELLS COUNTED % (AUTO) 100 %; WHITE BLOOD COUNT 7.6 10^3/uL (4.0-10.5)
[2019-08-26] MEDS ORDERED: OXYTOCIN/0.9 % SODIUM CHLORIDE 30 UNIT/500 ML RTUINJ IV PRN (17:25)
[2019-08-26] MEDS ORDERED: PENICILLIN G POTASSIUM 2,500,000 UNIT in DEXTROSE 5%-WATER 50 ML IV SCH (20:41)
[2019-08-26] MEDS: PENICILLIN G POTASSIUM 2,500,000 UNIT in DEXTROSE 5%-WATER 50 ML IV SCH (21:14)
[2019-08-26] MEDS ORDERED: BUPIVACAINE HCL 0.25 % INJ/PF (2.5 MG/1 ML) 30 ML VIAL ONE (22:51)
[2019-08-26] MEDS ORDERED: EPHEDRINE SULFATE INJ 50 MG/1 ML AMPULE ONE (22:51)
[2019-08-26] MEDS ORDERED: FENTANYL/BUPIVACAINE/NS/PF 300 MCG/150 ML RTUINJ EPI ONE (22:51)
[2019-08-27] MEDS ORDERED: PENICILLIN G-K 5 MILLION UNIT VIAL ONE (00:41)
[2019-08-27] MEDS: PENICILLIN G POTASSIUM 2,500,000 UNIT in DEXTROSE 5%-WATER 50 ML IV SCH (00:49)
[2019-08-27] MEDS: RINGERS SOLUTION,LACTATED 1,000 ML IV PRN (00:50)
[2019-08-27] MEDS ORDERED: DIPH/PERTUSS(ACELL)/TETANUS VAC/PF 0.5 ML SYR (>=10YO) IM PRN (02:43)
[2019-08-27] MEDS ORDERED: DIBUCAINE 1% OINTMENT 28 GM TP PRN (02:43)
[2019-08-27] MEDS ORDERED: MEASLES,MUMPS&RUBELLA VACC/PF 0.5 ML VIAL SUBCUT PRN (02:43)
[2019-08-27] MEDS ORDERED: NA PHOS,M-B/NA PHOS,DI-BA (ADULT) 133 ML ENEMA PR PRN (02:43)
[2019-08-27] MEDS ORDERED: ACETAMINOPHEN 325 MG TABLET PO PRN (02:43)
[2019-08-27] MEDS ORDERED: OXYTOCIN/0.9 % SODIUM CHLORIDE 30 UNIT/500 ML RTUINJ IV PRN (02:43)
[2019-08-27] MEDS ORDERED: PSEUDOEPHEDRINE HCL 30 MG TABLET PO PRN (02:43)
[2019-08-27] MEDS ORDERED: BENZOCAINE/MENTHOL AEROSOL SPRAY 56 ML TOP PRN (02:43)
[2019-08-27] MEDS ORDERED: PROMETHAZINE HCL INJ 25 MG/1 ML VIAL IV PRN (02:43)
[2019-08-27] MEDS ORDERED: MAGNESIUM HYDROXIDE SUSP 30 ML UDCUP PO PRN (02:43)
[2019-08-27] MEDS ORDERED: ZOLPIDEM TARTRATE 5 MG TABLET PO PRN (02:43)
[2019-08-27] MEDS ORDERED: DIPHENHYDRAMINE HCL 25 MG CAPSULE PO PRN (02:43)
[2019-08-27] MEDS ORDERED: GLYCERIN/WITCH HAZEL LEAF 1 EACH MED..WIPE TP PRN (02:43)
[2019-08-27] MEDS ORDERED: PROMETHAZINE HCL 25 MG SUPP.RECT PR PRN (02:43)
[2019-08-27] MEDS ORDERED: ACETAMINOPHEN 650 MG SUPP.RECT PR PRN (02:43)
[2019-08-27] MEDS ORDERED: ACETAMINOPHEN WITH CODEINE #3 TABLET PO PRN ×2 (02:43)
[2019-08-27] MEDS ORDERED: PROMETHAZINE HCL 25 MG TABLET PO PRN (02:43)
--- NOTE | 2019-08-27 05:34 | Delivery Summary ---
Del Sum A-C Datetime Report Generated by CPN: 08/27/2019 05:34 DELIVERY PERSONNEL DELIVERY PERSONNEL: [id number] Delivery Doctor:: Kalpana Hayden MD Labor and Delivery Nurse:: Teresa Diego RNcreative services coordinator Nurse:: Abimbola Harkins RNC Nursery Nurse:: Lily Zavaleta RN Nursery Nurse:: Daisy Sandhu RN Engagement Director/PUBLIC ADDRESS TECHNICIAN: Broolkyn Green, ST MATERNAL INFORMATION Delivery Anesthesia: Epidural Medications After Delivery: Pitocin 30 Units in 500ml NS/D5W Estimated Blood Loss (ml): 200 Delivery QBL: 200 Maternal Complications: None LABOR SUMMARY EDC: 08/26/2019 00:00 (Annotations: Data stored by [facility] on behalf of user) No. Babies in Womb: 1 Attempted: No Labor Anesthesia: Epidural LABOR INFORMATION Reason for Induction: Not Applicable Onset of Labor: 08/19/2019 22:30 Complete Dilatation: 08/20/2019 01:14 Oxytocin: Augmentation Group B Beta Strep: neg Antibiotics # of Doses: 3 Antibiotics Time of Last Dose: 0125 Name of Antibiotic Given: Penicillin Steroids Given: None Reason Steroids Not Administered: Not Applicable MEMBRANES Membranes Rupture Method: Spontaneous Rupture of Membranes: 08/23/2019 12:00 Length of Rupture (hr): 85.43 Amniotic Fluid Color: Clear Amniotic Fluid Amount: Scant Amniotic Fluid Odor: Normal STAGES OF LABOR Stage 1 hr: 2 Stage 1 min: 44 Stage 2 hr: 168 Stage 2 min: 12 Stage 3 hr: 0 Stage 3 min: 3 Total Time in Labor hr: 170 Total Time in Labor min: 59 VAGINAL DELIVERY Episiotomy: None Laceration #1: None Laceration Extension #1: N/A Laceration Repair: Not Applicable Sponge Count Correct: N/A Sharps Count Correct: N/A CSECTION DELIVERY Primary Indication: N/A Secondary Indication: N/A CSection Incidence: N/A Labor: N/A Elective: N/A CSection Incision: N/A BABY A INFORMATION Infant Delivery Date/Time: 08/27/2019 01:26 Method of Delivery: Vaginal Nurse Controlled Delivery: No Born in Route : No : N/A Forceps: N/A Vacuum Extraction: N/A Shoulder Dystocia : No PRESENTATION/POSITION BABY A Presentation: Cephalic Cephalic Presentation: Vertex Vertex Position: Left Occipital Anterior Breech Presentation: N/A PLACENTA INFORMATION BABY A Placenta Delivery Time : 08/27/2019 01:29 Placenta Method of Delivery: Spontaneous Placenta Status: Delivered SCORES BABY A Heart Rate 1 min: >100 bpm Resp Effort 1 min: Good Cry Reflex Irritability 1 min: Cough or Sneeze or Pulls Away Muscle Tone 1 min: Active Motion Color 1 min: Body [place], Extremities Blue Resuscitation Effort 1 min: Tactile Stimulation SCORE 1 MIN: 9 Heart Rate 5 min: >100 bpm Resp Effort 5 min: Good Cry Reflex Irritability 5 min: Cough or Sneeze or Pulls Away Muscle Tone 5 min: Active Motion Color 5 min: Body [place], Extremities Blue SCORE 5 MIN: 9 INFANT INFORMATION BABY A Gestational Age at Delivery: 40.1 Gestational Status: Full Term- 39- 40.6 Weeks Infant Outcome : Liveborn Condition : Stable Infant Sex: Female IDENTIFICATION BABY A Infant Verification Date/Time: 08/27/2019 01:32 ID Band Number: [id number] Mother's Name Verified: Yes RN Verifying Infant: , RN Additional Verifying Personnel: Maribell, MID LEVEL GAME DESIGNER WEIGHT/LENGTH BABY A Infant Birthweight (gm): 3014 Weight (lb): 6 Weight (oz): 10 Length (in): 19.25 Length (cm): 48.90 CORD INFORMATION BABY A No. Cord Vessels: 3 Nuchal Cord : N/A Cord Blood Taken: Yes-For Eval (Mom's Blood Type - or O+) Infant Suction: Mouth; Nose ASSESSMENT BABY A Infant Complications: None Physical Findings at Delivery: Within Normal Limits Respirations: Appears Normal Spinning Operator/ALS Called : No Care By: Melanie Zavaleta RN Transferred To: Remains with Mother BABY B INFORMATION : N/A SIGNATURES Signature: Electronically signed by Kalpana Hayden MD ([facility]) on 08/27/2019 at 01:42 with User ID: [email or web address] : I was personally available for consultation and serving as supervising physician for the MLP.
[2019-08-27] MEDS: IBUPROFEN 800 MG TABLET PO SCH ×3 (05:52→21:37)
[2019-08-27] MEDS: SENNOSIDES/DOCUSATE 8.6-50 MG 1 EACH TABLET PO SCH (10:13)
[2019-08-27] MEDS: DOCUSATE SODIUM 100 MG CAPSULE PO SCH ×2 (10:13→17:27)
[2019-08-27] MEDS: FAMOTIDINE 20 MG TABLET PO SCH ×2 (10:14→21:38)
[2019-08-27] MEDS: PRENATAL VITAMIN W DHA CAPSULE PO SCH (10:14)
[2019-08-27] MEDS: FERROUS SULFATE 325 MG TABLET PO SCH ×2 (10:14→17:27)
[2019-08-28] MEDS: IBUPROFEN 800 MG TABLET PO SCH ×3 (05:05→22:58)
[2019-08-28 07:01] LABS: HEMATOCRIT 29.7 % (36.0-47.0); HEMOGLOBIN 10.2 g/dL (12.0-15.5); MEAN CORPUSCULAR HEMOGLOBIN 29.3 pg (27.0-33.4); MEAN CORPUSCULAR HGB CONC 34.5 g/dL (32.0-36.0); MEAN CORPUSCULAR VOLUME 85 fl (80-97); PLATELET COUNT 260 10^3/uL (150-450); RED CELL DISTRIBUTION WIDTH 15.5 % (11.5-14.0); WHITE BLOOD COUNT 10.3 10^3/uL (4.0-10.5)
[2019-08-28] MEDS: SENNOSIDES/DOCUSATE 8.6-50 MG 1 EACH TABLET PO SCH (09:24)
[2019-08-28] MEDS: DOCUSATE SODIUM 100 MG CAPSULE PO SCH ×2 (09:24→17:33)
[2019-08-28] MEDS: FAMOTIDINE 20 MG TABLET PO SCH ×2 (09:25→22:58)
[2019-08-28] MEDS: FERROUS SULFATE 325 MG TABLET PO SCH ×2 (09:25→17:33)
[2019-08-28] MEDS: PRENATAL VITAMIN W DHA CAPSULE PO SCH (09:25)
--- NOTE | 2019-08-28 11:15 | PDOC PROGRESS REPORT ---
Subjective-OB Progress Note for:: 08/28/19 Subjective: Doing well, no c/o, bottle and breast feeding, voiding, ambulating Physical Exam (OB) Vital Signs: Temp Pulse Resp BP Pulse Ox 97.7 F 57 L 16 104/69 99 08/28/19 07:38 08/28/19 07:38 08/28/19 07:38 08/28/19 07:38 08/28/19 07:38 Intake & Output 08/27/19 08/28/19 08/29/19 06:59 06:59 06:59 Intake Total 979 400 Balance 979 400 Weight 68.9 kg - PIH/Pre-Eclampsia DTR's: 1 + Clonus: Negative Headache: Absent Epigastric Pain: No Visual Changes: No - Lochia Lochia Amount: Scant < 10 ml Lochia Color: Rubra/Red - Abdomen Description: Soft Hernia Present: No Fundal Description: Firm, Midline Fundal Height: u/u - u/2 Objective-Diagnostic Laboratory: 08/28/19 06:23 08/28/19 06:23 WBC 10.3 RBC 3.50 L Hgb 10.2 L Hct 29.7 L MCV 85 MCH 29.3 MCHC 34.5 RDW 15.5 H Plt Count 260 Assessment and Plan(PN) - Assessment and Plan (1) Vaginal delivery Is this a current diagnosis for this admission?: Yes (2) Acute blood loss anemia Is this a current diagnosis for this admission?: Yes - Time Spent with Patient Time with patient: Less than 15 minutes Medications reviewed and adjusted accordingly: Yes - Disposition Anticipated Discharge: Home Within: within 24 hours
[2019-08-29] MEDS: IBUPROFEN 800 MG TABLET PO SCH ×2 (05:28→13:42)
--- NOTE | 2019-08-29 09:23 | PDOC DISCHARGE SUMMARY ---
Impression - Admit/DC Date/PCP Admission Date/Primary Care Provider: 08/26/19 16:37 VEL GARZA MD Discharge Date: 08/29/19 - PP Day #2, doing well, O+, rubella immune - Discharge Diagnosis (1) Normal course Is this a current diagnosis for this admission?: Yes (2) Acute blood loss anemia Is this a current diagnosis for this admission?: Yes (3) Vaginal delivery Is this a current diagnosis for this admission?: Yes - Additional Information Resuscitation Status: Full Code Discharge Diet: As Tolerated Discharge Activity: Activity As Tolerated, No Lifting Over 10 Pounds, Pelvic Rest Referrals: VEL GARZA MD [Primary Care Provider] - Prescriptions: Ibuprofen [Motrin 800 mg Tablet] 800 mg PO Q8 #60 tablet Home Medications: Vit/Iron Fum/Folic AC [ Tablet] 1 each PO DAILY 04/07/17 Ferrous Sulfate [Feosol 325 mg Tablet] 325 mg PO BID #60 tablet 04/09/17 Ibuprofen [Motrin 800 mg Tablet] 800 mg PO Q8 #60 tablet 08/29/19 HPI Reason(s) for Admission: Onset of Labor Procedures: Ultrasound Intrapartum Procedure(s): Spontaneous Vaginal Delivery Results Laboratory Results: WBC 10.3 10^3/uL (4.0-10.5) 08/28/19 06:23 RBC 3.50 10^6/uL (3.72-5.28) L 08/28/19 06:23 Hgb 10.2 g/dL (12.0-15.5) L 08/28/19 06:23 Hct 29.7 % (36.0-47.0) L 08/28/19 06:23 MCV 85 fl (80-97) 08/28/19 06:23 MCH 29.3 pg (27.0-33.4) 08/28/19 06:23 MCHC 34.5 g/dL (32.0-36.0) 08/28/19 06:23 RDW 15.5 % (11.5-14.0) H 08/28/19 06:23 Plt Count 260 10^3/uL (150-450) 08/28/19 06:23 Lymph % (Auto) 21.9 % (13-45) 08/26/19 16:59 [place] % (Auto) 5.1 % (3-13) 08/26/19 16:59 Eos % (Auto) 2.5 % (0-6) 08/26/19 16:59 Baso % (Auto) 0.8 % (0-2) 08/26/19 16:59 Absolute Neuts (auto) 5.3 10^3/uL (1.7-8.2) 08/26/19 16:59 Absolute Lymphs (auto) 1.7 10^3/uL (0.5-4.7) 08/26/19 16:59 Absolute Monos (auto) 0.4 10^3/uL (0.1-1.4) 08/26/19 16:59 Absolute Eos (auto) 0.2 10^3/uL (0.0-0.6) 08/26/19 16:59 Absolute Basos (auto) 0.1 10^3/uL (0.0-0.2) 08/26/19 16:59 Seg Neutrophils % 69.7 % (42-78) 08/26/19 16:59 Urine Color YELLOW 08/26/19 15:56 Urine Appearance SLIGHTLY-CLOUDY 08/26/19 15:56 Urine pH 7.0 (5.0-9.0) 08/26/19 15:56 Ur Specific [place] 1.016 08/26/19 15:56 Urine Protein NEGATIVE mg/dL (NEGATIVE) 08/26/19 15:56 Urine Glucose (UA) NEGATIVE mg/dL (NEGATIVE) 08/26/19 15:56 Urine Ketones NEGATIVE mg/dL (NEGATIVE) 08/26/19 15:56 Urine Blood NEGATIVE (NEGATIVE) 08/26/19 15:56 Urine Nitrite NEGATIVE (NEGATIVE) 08/26/19 15:56 Urine Bilirubin NEGATIVE (NEGATIVE) 08/26/19 15:56 Urine Urobilinogen 2.0 mg/dL (<2.0) H 08/26/19 15:56 Ur Leukocyte Esterase NEGATIVE (NEGATIVE) 08/26/19 15:56 Urine WBC (Auto) 0 /HPF 08/26/19 15:56 Urine Bacteria (Auto) TRACE /HPF 08/26/19 15:56 Squamous Epi Cells Auto 3 /HPF 08/26/19 15:56 Urine Mucus (Auto) OCC /LPF 08/26/19 15:56 Urine Ascorbic Acid NEGATIVE (NEGATIVE) 08/26/19 15:56 Membranes Rupture POSITIVE (NEGATIVE) H 08/26/19 15:56 Epi Cells (Wet Prep) 3+ EPITHELIALS SEEN 08/26/19 15:56 Bacteria (Wet Prep) 3+ BACTERIA SEEN 08/26/19 15:56 Trichomonas (Wet Prep) NO TRICHOMONAS SEEN 08/26/19 15:56 Vaginal WBC 2+ WBCS SEEN 08/26/19 15:56 Vaginal RBC 1+ RBCS SEEN 08/26/19 15:56 Vaginal Yeast NO YEAST SEEN 08/26/19 15:56 Urine Opiates Screen NEGATIVE 08/26/19 15:56 Urine Methadone Screen NEGATIVE 08/26/19 15:56 Ur Barbiturates Screen NEGATIVE 08/26/19 15:56 Ur Phencyclidine Scrn NEGATIVE 08/26/19 15:56 Ur Amphetamines Screen NEGATIVE 08/26/19 15:56 U Benzodiazepines Scrn NEGATIVE 08/26/19 15:56 Urine Cocaine Screen NEGATIVE 08/26/19 15:56 U Marijuana (THC) Screen NEGATIVE 08/26/19 15:56 RPR NONREACTIVE (NONREACTIVE) 08/26/19 16:59 Blood Type O POSITIVE 08/26/19 16:59 Antibody Screen NEGATIVE 08/26/19 16:59 Plan Plan of Treatment: d/c home. F/up with [facility] in 4 wks for PP check up Time Spent: Less than 30 Minutes
[2019-08-29 10:23] VITALS: BP 114/70
[2019-08-29] MEDS: PRENATAL VITAMIN W DHA CAPSULE PO SCH (11:01)
[2019-08-29] MEDS: FERROUS SULFATE 325 MG TABLET PO SCH (11:01)
[2019-08-29] MEDS: FAMOTIDINE 20 MG TABLET PO SCH (11:01)
[2019-08-29] MEDS: DOCUSATE SODIUM 100 MG CAPSULE PO SCH (11:01)
[2019-08-29] MEDS: SENNOSIDES/DOCUSATE 8.6-50 MG 1 EACH TABLET PO SCH (11:01)
== END 2019-08-29 14:41 | disposition home or self-care (01) | DRG 806 ==
LOC: LC 15:37 → LR 16:37 → 2S 08-27 03:44
PROVIDERS: ADMIT Obstetrics & Gynecology; ATTEND Obstetrics & Gynecology
PROC: 10E0XZZ Delivery of Products of Conception, External Approach (ICD-10-PCS; principal; 2019-08-27)
DX: O42.12 Full-term premature rupture of membranes, onset of labor more than 24 hours following rupture (principal); D62 Acute posthemorrhagic anemia; Z37.0 Single live birth; O90.81 Anemia of the puerperium; Z3A.40 40 weeks gestation of pregnancy
CPT/HCPCS: 1967; 36415; 80307; 81001; 84112; 85025; 85027; 86592; 86850; 86900; 86901; 87210; 94760; J2540; J2590; J3010; J3490; J7060